=== PATIENT | male | born 1975 | race Caucasian/White ===

== ENCOUNTER 2022-09-18 17:13 | Emergency (ER) | payer BC ==
--- NOTE | 2022-09-18 18:13 | EDPHYS ---
Physician Documentation [facility] Name: Silvestre Vernon Age: 47 yrs Sex: Male : 1975 Arrival Date: 09/18/2022 Time: 17:13 Bed 12 Private MD: Rodriguez Bajwa HPI: 09/18 18:09 This 47 yrs old Male presents to ER via Ambulatory with complaints of Staple philip Removal. 18:09 The patient has ana on the scalp. Previous treatment: The patient was initially philip treated 7 DAYS. Sutures/ana progress: The patient has no c/o's. The wound is well-healing with no redness, swelling, discharge, or dehiscence reported. The patient has not experienced similar symptoms in the past. Historical: - Allergies: 17:26 No Known Allergies; ss - Immunization history:: Adult Immunizations unknown. - Social history:: Smoking status: unknown. ROS: 18:10 Constitutional: Negative for fever, chills, and weight loss, Eyes: Negative for injury, philip pain, redness, and discharge, ENT: Negative for injury, pain, and discharge, Neck: Negative for injury, pain, and swelling, Cardiovascular: Negative for chest pain, palpitations, and edema, Respiratory: Negative for shortness of breath, cough, wheezing, and pleuritic chest pain, Abdomen/GI: Negative for abdominal pain, nausea, vomiting, diarrhea, and constipation, Back: Negative for injury and pain, : Negative for injury, bleeding, discharge, and swelling, MS/Extremity: Negative for injury and deformity, Neuro: Negative for headache, weakness, numbness, tingling, and seizure, Psych: Negative for depression, anxiety, suicide ideation, homicidal ideation, and hallucinations, Allergy/Immunology: Negative for hives, rash, and allergies, Endocrine: Negative for neck swelling, polydipsia, polyuria, polyphagia, and marked weight changes, Hematologic/Lymphatic: Negative for swollen nodes, abnormal bleeding, and unusual bruising. 18:10 Skin: Negative for cellulitis, swelling. Exam: 18:10 Constitutional: This is a well developed, well nourished patient who is awake, alert, philip and in no acute distress. Eyes: Pupils equal round and reactive to light, extra-ocular motions intact. Lids and lashes normal. Conjunctiva and sclera are non-icteric and not injected. Cornea within normal limits. Periorbital areas with no swelling, redness, or edema. ENT: Nares patent. No nasal discharge, no septal abnormalities noted. Tympanic membranes are normal and external auditory canals are clear. Oropharynx with no redness, swelling, or masses, exudates, or evidence of obstruction, uvula midline. Mucous membranes moist. Neck: Trachea midline, no thyromegaly or masses palpated, and no cervical lymphadenopathy. Supple, full range of motion without nuchal rigidity, or vertebral point tenderness. No Meningismus. Chest/axilla: Normal chest wall appearance and motion. Nontender with no deformity. No lesions are appreciated. Cardiovascular: Regular rate and rhythm with a normal S1 and S2. No gallops, murmurs, or rubs. Normal PMI, no JVD. No pulse deficits. Respiratory: Lungs have equal breath sounds bilaterally, clear to auscultation and percussion. No rales, rhonchi or wheezes noted. No increased work of breathing, no retractions or nasal flaring. Abdomen/GI: Soft, non-tender, with normal bowel sounds. No distension or tympany. No guarding or rebound. No evidence of tenderness throughout. Back: No spinal tenderness. No costovertebral tenderness. Full range of motion. Skin: Warm, dry with normal turgor. Normal color with no rashes, no lesions, and no evidence of cellulitis. MS/ Extremity: Pulses equal, no cyanosis. Neurovascular intact. Full, normal range of motion. Neuro: Awake and alert, GCS 15, oriented to person, place, time, and situation. Cranial nerves II-XII grossly intact. Motor strength 5/5 in all extremities. Sensory grossly intact. Cerebellar exam normal. Normal gait. Psych: Awake, alert, with orientation to person, place and time. Behavior, mood, and affect are within normal limits. 18:10 Head/face: Noted is HEALING, WITH 2 ANA. Vital Signs: 17:25 BP 161 / 107; Pulse 73; Resp 16; Temp 98.8(TE); Pulse Ox 100% on R/A; Pain 0/10; ss MDM: 17:16 Patient medically screened. philip Administered Medications: No medications were administered Disposition Summary: 09/18/22 18:13 Discharge Ordered Location: Home philip Problem: new philip Symptoms: have improved philip Condition: Stable philip Diagnosis - Encounter for removal of sutures - Ana philip Followup: philip - With: Private Physician - When: 5 - 6 days - Reason: Recheck today's complaints, Re-evaluation by your physician Discharge Instructions: - Discharge Summary Sheet philip - Sutures, [place], or Adhesive Wound Closure philip - Suture Removal, Care After philip - Wound Closure Removal, Care After philip Forms: - Medication Reconciliation Form philip - Thank You Letter philip - Antibiotic Education philip - Prescription Opioid Use philip Signatures: Rodriguez Padilla MD MD cha Smirch, Shelby, RN RN ss Haven Brown RN RN em6
--- NOTE | 2022-09-18 18:13 | ER ---
Nurse's Notes [facility] Name: Silvestre Vernon Age: 47 yrs Sex: Male : 1975 Arrival Date: 09/18/2022 Time: 17:13 Bed 12 Private MD: Diagnosis: Encounter for removal of sutures-[place] Presentation: 09/18 17:23 Chief complaint: Patient states: Here to have ana removed from top of head. Ana ss were placed in ER 5 days ago. 17:25 Coronavirus screen: Client denies travel out of the [place] in the last 14 days. Ebola ss Screen: Patient denies exposure to infectious person. Patient denies travel to an Ebola-affected area in the 21 days before illness onset. Initial Sepsis Screen: Does the patient meet any 2 criteria? No. Patient's initial sepsis screen is negative. Does the patient have a suspected source of infection? No. Patient's initial sepsis screen is negative. Risk Assessment: Do you want to hurt yourself or someone else? Patient reports no desire to harm self or others. Onset of symptoms was September 13, 2022. 17:25 Method Of Arrival: Ambulatory ss 17:25 Acuity: CRISTOPHER 5 ss Triage Assessment: 17:43 General: Appears in no apparent distress. Pain: Denies pain. em6 Historical: - Allergies: 17:26 No Known Allergies; ss - Immunization history:: Adult Immunizations unknown. - Social history:: Smoking status: unknown. Screenin:26 Abuse screen: Denies threats or abuse. Denies injuries from another. Tuberculosis ss screening: Never had TB. 17:43 Nutritional screening: No deficits noted. Fall Risk Total Peacock Fall Scale indicates No em6 Risk (0-24 pts). Assessment: 17:26 General: Appears in no apparent distress. comfortable, Behavior is calm, cooperative. ss Respiratory: Airway is patent Respiratory effort is even, unlabored, Respiratory pattern is regular, symmetrical. Derm: Skin is pink, warm \T\ dry. normal. Vital Signs: 17:25 BP 161 / 107; Pulse 73; Resp 16; Temp 98.8(TE); Pulse Ox 100% on R/A; Pain 0/10; ss ED Course: 17:13 Patient arrived in ED. am2 17:16 Rodriguez Padilla MD is Attending Physician. [facility] 17:26 Triage completed. 17:26 Arm band placed on right wrist. ss 17:26 Patient has correct armband on for positive identification. 17:26 Patient did not have IV access during this emergency room visit. ss 17:35 Haven Brown, RN is Primary Nurse. em6 18:19 No provider procedures requiring assistance completed. em6 Administered Medications: No medications were administered Medication: 17:26 VIS not applicable for this client. ss Outcome: 17:26 No charge visit due to staple removal . ss 18:13 Discharge ordered by . [facility] 18:20 Discharged to home ambulatory. em6 18:20 Condition: stable 18:20 Discharge instructions given to patient, Instructed on discharge instructions, follow up and referral plans. wound care, Demonstrated understanding of instructions, follow-up care, wound care. 18:20 Patient left the ED. em6 Signatures: Rodriguez Padilla MD MD cha Smirch, Shelby, KATIE RN Nanda Traylor Estefania Haven Brown, RN RN em6 Corrections: (The following items were deleted from the chart) 17: 17:23 Chief complaint: Patient states: Here to have ana removed from top of head. ssss
== END 2022-09-18 18:20 | disposition home or self-care (01) ==
LOC: ER 17:13
DX: Z48.02 Encounter for removal of sutures (principal)